=== PATIENT | female | born 1950 | race Two or more races ===

== ENCOUNTER 2017-01-27 18:56 | Emergency (ER) | payer SELFPAY ==
[~2017-01-27] VITALS: Ht 152.4 cm; Wt 70.0 kg
[2017-01-27 19:03] VITALS: BP 166/72; PULSE 83; RESP 18; TEMP 98.7; O2SAT 98
[2017-01-27 20:35] VITALS: BP 166/71; PULSE 104; RESP 20; TEMP 98.3; O2SAT 97
--- NOTE | 2017-01-27 21:21 | PD ---
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 Patient states pain is intermittent. Patient denies any injury or fall. Headache is not sudden onset thunderclap or worst ever. Pain is 7/10 in intensity. No reported change in mentation, visual disturbance, facial weakness, change in speech, ataxia of gait, upper or lower extremity numbness tingling or weakness. Patient does have history of hypertension and diabetes as well as hypothyroidism. No report of chest pain palpitations syncope near-syncope shortness of breath pleuritic chest pain abdominal pain nausea vomiting diarrhea or urinary symptoms. No recent febrile illness. No similar history of similar symptoms. [facility] Past Medical History Narrative Medical Diabetes hypertension dyslipidemia; no tobacco use; nursing notes reviewed Allergies-Medications (Allergen,Severity, Reaction): Coded Allergies: Sulfa (Sulfonamide Antibiotics) (Verified Allergy, Unknown, ITCHING, ) Uncoded Allergies: seafood (Allergy, Unknown, 01/27/17) Reported Meds & Prescriptions Reported Meds & Active Scripts Active Lortab (Hydrocodone-Acetaminophen) 5-325 Mg Tab 1 Tab PO Q6H PRN Valtrex (Valacyclovir HCl) 1 Gm Tab 1,000 Mg PO TID 7 Days Reported Glimepiride 4 Mg Tab 4 Mg PO BIDAC Curcumin (Turmeric (Curcuma Longa) (Bulk) 1 Pow Pow 1 Tab PO DAILY Glucosamine (Glucosamine Sulfate) 750 Mg Cap 750 Mg PO DAILY [Eutirox] 1 Tab PO DAILY Candesartan-Hydrochlorothiazide 32-25 Mg Tab 1 Tab PO DAILY Multiple Vitamin 1 Tab 1 Tab PO DAILY Review of Systems Except as stated in HPI: all other systems reviewed are Neg General / Constitutional: No: Fever, Chills Eyes: No: Visual changes HENT: Positive: Headaches, No: Congestion, Neck Pain Cardiovascular: No: Chest Pain or Discomfort Respiratory: No: Shortness of Breath Gastrointestinal: No: Nausea, Abdominal Pain Musculoskeletal: No: Cramping, Edema, Pain Skin: No Rash Neurologic: No: Weakness Psychiatric: No: Anxiety Hematologic/Lymphatic: No: Lymph Node Enlargement Physical Exam Narrative GENERAL: Well-developed well-nourished [place]-speaking female in no acute distress no respiratory distress; GCS 15 SKIN: Warm and dry. HEAD: Atraumatic. Normocephalic. Patient with faint area of erythema and dermatomal distribution to the right anterior scalp and scant amount to forehead no vesicular rash no pustules no petechia no purpura and changes are not extending to the nose. EYES: Pupils equal and round. Extraocular muscles intact. No scleral icterus. No injection or drainage. No fluorescein uptake, no dendritic changes. ENT: No nasal bleeding or discharge. Mucous membranes pink and moist. Airway is patent. NECK: Trachea midline. No JVD. Supple. CARDIOVASCULAR: Regular rate and rhythm. RESPIRATORY: No accessory muscle use. Clear to auscultation. Breath sounds equal bilaterally. GASTROINTESTINAL: Abdomen soft, non-tender, nondistended. Hepatic and splenic margins not palpable. MUSCULOSKELETAL: Extremities without clubbing or cyanosis. No lower extremity pain erythema or edema. No obvious deformities. NEUROLOGICAL: Awake and alert. No obvious cranial nerve deficits. Motor grossly within normal limits. Five out of 5 muscle strength in the arms and legs. Sensory exam intact. No pronator drift. No limb ataxia. Normal speech. PSYCHIATRIC: Appropriate mood and affect; insight and judgment normal. Data Data Last Documented VS Vital Signs Date Time Temp Pulse Resp B/P (MAP) Pulse Ox O2 Delivery O2 Flow Rate FiO2 01/27/17 21:47 97 Room Air 01/27/17 20:35 98.3 104 20 Orders Orders Electrocardiogram (01/27/17 21:18) Basic Metabolic Panel (Bmp) (01/27/17 21:18) Complete Blood Count With Diff (01/27/17 21:18) Troponin I (01/27/17 21:18) Ct Brain W/O Iv Contrast(Rout) (01/27/17 21:18) Ecg Monitoring (01/27/17 21:18) Iv Access Insert/Monitor (01/27/17 21:18) Oximetry (01/27/17 21:18) Labs Laboratory Tests Test 01/27/17 21:08 White Blood Count 6.4 TH/MM3 Red Blood Count 4.30 MIL/MM3 Hemoglobin 12.5 GM/DL Hematocrit 37.1 % Mean Corpuscular Volume 86.4 FL Mean Corpuscular Hemoglobin 29.1 PG Mean Corpuscular Hemoglobin Concent 33.7 % Red Cell Distribution Width 13.0 % Platelet Count 220 TH/MM3 Mean Platelet Volume 8.0 FL Neutrophils (%) (Auto) 58.7 % Lymphocytes (%) (Auto) 29.5 % Monocytes (%) (Auto) 9.0 % Eosinophils (%) (Auto) 2.3 % Basophils (%) (Auto) 0.5 % Neutrophils # (Auto) 3.8 TH/MM3 Lymphocytes # (Auto) 1.9 TH/MM3 Monocytes # (Auto) 0.6 TH/MM3 Eosinophils # (Auto) 0.1 TH/MM3 Basophils # (Auto) 0.0 TH/MM3 CBC Comment DIFF FINAL Differential Comment Blood Urea Nitrogen 32 MG/DL Creatinine 1.00 MG/DL Random Glucose 145 MG/DL Calcium Level 9.5 MG/DL Sodium Level 138 MEQ/L Potassium Level 3.9 MEQ/L Chloride Level 104 MEQ/L Carbon Dioxide Level 26.4 MEQ/L Anion Gap 8 MEQ/L Estimat Glomerular Filtration Rate 55 ML/MIN Troponin I LESS THAN 0.02 NG/ML MDM Medical Decision Making Medical Screen Exam Complete: Yes Emergency Medical Condition: Yes Medical Record Reviewed: Yes Interpretation(s) EKG sinus rhythm rate [address] elevation or injury pattern change noted normal axis and intervals CT brain w/o contrast: FINDINGS: There is no evidence for intracranial hemorrhage, mass effect, mass lesions, edema, or extra-axial fluid collections. The visualized bony structures appear intact. The ventricles are normal size for the patient's age. There are no signs of acute infarction for technique. CONCLUSION: Unremarkable study. Mary Laurent MD on January 27, 2017 at 22:10 Board Certified Radiologist. This report was verified electronically. CBC & BMP Diagram 01/27/17 21:08 Calcium Level 9.5 Vital Signs Date Time Temp Pulse Resp B/P (MAP) Pulse Ox O2 Delivery O2 Flow Rate FiO2 01/27/17 21:47 97 Room Air 01/27/17 21:23 98 Room Air 01/27/17 20:35 98.3 104 20 166/71 (102) 97 01/27/17 19:03 98.7 83 18 166/72 (103) 98 troponin I: less than 0.02, not elevated Differential Diagnosis Paresthesias, TIA, shingles, cephalgia Narrative Course Suspect the patient most likely has early onset shingles without typical vesicular rash however does seem to have unilateral intermittent sharp pain with some hypersensitivity of the frontal scalp and forehead distribution with small area of erythematous papular rash extending bending slightly onto the forehead sparing the nose and not involving the right eye. In view of patient' s risk factor profile of hypertension and diabetes CT brain noncontrast along with EKG basic chemistry labs will be obtained. If no focality or identified on diagnostics will treat patient presumptively for early shingles. Lab values grossly within normal limits except for elevation of BUN; the brain noncontrast no acute process; exam consistent with shingles; patient stable for outpatient management and follow-up provider and in view of the location of symptoms recommend follow-up with ophthalmology for evaluation of possible ophthalmologic involvement although no fluorescein uptake or visual disturbance or irritation at this time. Patient and family given information of results of labs EKG and CT brain noncontrast. Patient stable for outpatient management. Patient given first dose of Valtrex in the emergency department. 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: Dr Diana Cho, call office in AM for follow up appointment Primary Care Physician call for appointment Patient Instructions: General Instructions Additional Instructions: Follow-up with primary care provider Follow-up with able bodied seaman Take medication as prescribed Return to the emergency for free concerns or change condition May take low-dose 81 mg aspirin daily Continue current chronic medications as presently prescribed Med/Other Pt SpecificInfo: Prescription(s) given Scripts Hydrocodone-Acetaminophen (Lortab) 5-325 Mg Tab 1 TAB PO Q6H Y for PAIN GREATER THAN 5, #7 TAB 0 Refills Prov: Josefina Marin MD 01/27/17 Valacyclovir (Valtrex) 1 Gm Tab 1000 MG PO TID for Mgmt Viral Infection for 7 Days, TAB 0 Refills Prov: Josefina Marin MD 01/27/17 Disposition: 01 DISCHARGE HOME Condition: Stable Josefina Marin MD Jan 27, 2017 21:21
[2017-01-27] MEDS ORDERED: GLUC750C PO (21:27)
[2017-01-27] MEDS ORDERED: CAND32TA4 PO (21:27)
[2017-01-27] MEDS ORDERED: CURCPOW PO (21:27)
[2017-01-27] MEDS ORDERED: MULTTAB67 PO (21:27)
[2017-01-27] MEDS ORDERED: EUTIROX PO (21:27)
[2017-01-27] MEDS ORDERED: GLIM4TAB PO (21:27)
[2017-01-27 21:44] LABS: AUTOMATED NEUTROPHIL # 3.8 TH/MM3 (1.8-7.7); BASOPHIL % 0.5 % (0.0-2.0); EOSINOPHIL # 0.1 TH/MM3 (0-0.4); EOSINOPHIL % 2.3 % (0.0-4.0); HEMATOCRIT 37.1 % (35.0-46.0); HEMO FLAGS DIFF FINAL; LYMPH % 29.5 % (9.0-44.0); LYMPHOCYTE # 1.9 TH/MM3 (1.0-4.8); MEAN CELL VOLUME 86.4 FL (80.0-100.0); MEAN CORPUSCULAR HEMOGLOBIN 29.1 PG (27.0-34.0); MEAN CORPUSCULAR HGB CONC 33.7 % (32.0-36.0); NEUT % 58.7 % (16.0-70.0); PLATELET COUNT 220 TH/MM3 (150-450); WHITE BLOOD COUNT 6.4 TH/MM3 (4.0-11.0)
[2017-01-27 21:47] VITALS: O2SAT 97
[2017-01-27 21:51] LABS: CHLORIDE 104 MEQ/L (98-107); POTASSIUM 3.9 MEQ/L (3.5-5.1); SODIUM (NA) 138 MEQ/L (136-145)
[2017-01-27 21:54] LABS: ANION GAP 8 MEQ/L (5-15); BICARBONATE 26.4 MEQ/L (21.0-32.0); BLOOD UREA NITROGEN 32 MG/DL (7-18)
[2017-01-27 21:58] LABS: GLOMERULAR FILTRATION RATE 55 ML/MIN (>89)
--- NOTE | 2017-01-27 22:13 | RADRPT ---
EXAM DATE/TIME: 01/27/2017 21:57 [facility] COMPARISON: No previous studies available for comparison. INDICATIONS : Dizziness. Right ear pain. RADIATION DOSE: 56.25 CTDIvol (mGy) MEDICAL HISTORY : Hypertension. Diabetes mellitus type 2. SURGICAL HISTORY : None. ENCOUNTER: Initial ACUITY: 1 day PAIN SCALE: 8/10 LOCATION: Right temporal TECHNIQUE: Multiple contiguous axial images were obtained of the head. Using automated exposure control and adj ustment of the mA and/or kV according to patient size, radiation dose was kept as low as reasonably a chievable to obtain optimal diagnostic quality images. DICOM format image data is available electro nically for review and comparison. FINDINGS: There is no evidence for intracranial hemorrhage, mass effect, mass lesions, edema, or extra-axial fl uid collections. The visualized bony structures appear intact. The ventricles are normal size for t he patient's age. There are no signs of acute infarction for technique. CONCLUSION: Unremarkable study. Mary Laurent MD on January 27, 2017 at 22:10 Board Certified Radiologist. This report was verified electronically.
[2017-01-27] MEDS ORDERED: HYDR-3533 PO (22:27)
[2017-01-27] MEDS ORDERED: VALT1TAB PO (22:27)
[2017-01-27] MEDS ORDERED: valACYclovir HCL 500 MG TAB PO ONE (22:45)
[2017-01-27 22:57] VITALS: BP 159/66
--- NOTE | 2017-01-28 05:08 | EKG ---
Date Performed: 01/27/2017 Time Performed: 21:52:50 PTAGE: 66 years EKG: Sinus rhythm NONSPECIFIC T-WAVE ABNORMALITY BORDERLINE ECG NO PREVIOUS TRACING DOCTOR: Sandro Triana Interpretating Date/Time 01/28/2017 05:07:25
== END 2017-01-27 23:00 | disposition home or self-care (01) ==
LOC: PHED 18:56 → PHEFT 23:00
DX: B02.9 Zoster without complications (principal); E86.0 Dehydration; E11.9 Type 2 diabetes mellitus without complications; I10 Essential (primary) hypertension; E78.5 Hyperlipidemia, unspecified; E03.9 Hypothyroidism, unspecified
CPT/HCPCS: 70450; 80048; 84484; 85025; 93005; 99285